=== PATIENT | male | born 1965 | race African-American/Black ===

== ENCOUNTER 2017-10-21 23:39 | Inpatient (IN) | payer SELFPAY ==
[2017-10-22] MEDS ORDERED: Acetaminophen 325 MG TAB PO PRN (02:16)
[2017-10-22] MEDS ORDERED: Loperamide HCl 2 MG CAP PO PRN (02:16)
[2017-10-22] MEDS ORDERED: Guaifenesin DM 100-10/5 ML UDCUP PO PRN (02:16)
[2017-10-22] MEDS ORDERED: HYDROcodone/Acetaminophen 5/325 mg Tablet PO PRN (02:16)
[2017-10-22] MEDS ORDERED: Milk Of Magnesia 30 ML UDCUP PO PRN (02:16)
[2017-10-22] MEDS ORDERED: Mag-Al 1200 mg/1200 mg/30 ML UDCUP PO PRN (02:16)
[2017-10-22] MEDS ORDERED: Ondansetron ODT 4 MG TAB PO PRN (02:16)
[2017-10-22] MEDS ORDERED: hydrALAZINE 20 MG/ML VIAL SLOW IVP PRN (02:16)
[2017-10-22] MEDS ORDERED: Ondansetron HCl/PF 4 MG/2 ML Vial IVP PRN (02:16)
[2017-10-22] MEDS ORDERED: Zolpidem Tartrate 5 MG TAB PO PRN (02:16)
[2017-10-22] MEDS ORDERED: Labetalol HCl 100 MG/20 ML VIAL SLOW IVP PRN (02:16)
[2017-10-22] MEDS ORDERED: Senokot 8.6 MG TAB PO PRN (02:16)
[2017-10-22 02:33] VITALS: BMI 25.0
[2017-10-22] MEDS: Sodium Chloride 0.9% 1,000 ML IV SCH ×3 (02:40→20:39)
[2017-10-22 03:12] LABS: Amphetamine Not Detected (NotDetected); Barbiturates Screen Not Detected (NotDetected); Benzodiazepine Screen Not Detected (NotDetected); Cocaine Metabolite Screen Detected (NotDetected); Medtox Control Line Valid? VALID (VALID); Medtox Reader # READER 1; Methadone Not Detected (NotDetected); Methamphetamine Not Detected (NotDetected); Opiate Screen Not Detected (NotDetected); Oxycodone Screen Not Detected (NotDetected); Phencyclidine (PCP) Not Detected (NotDetected); THC/Cannabinoid Screen Not Detected (NotDetected); Tricyclic Screen Not Detected (NotDetected)
--- NOTE | 2017-10-22 03:19 | HP ---
PRIMARY CARE PHYSICIAN: [facility] call admission. REASON FOR ADMISSION: Acute rhabdomyolysis, acute kidney failure. HISTORY OF PRESENT ILLNESS: A 52-year-old -Malag[place] male who was initially taken to [facility] ergency Room, patient was having cramping all over his body, especially on the chest area, thigh area , and back. This was going on for last 2-3 days. He was working heavily for the last couple of days in hot humid weather. His work was requiring lifting heavy weight. Day by day, he was having more and more cramps and that is why today he decided to go to local emergency room, patient was found wit h acute kidney failure as well as rhabdomyolysis. Patient was given IV fluid 2 L and Toradol and sub sequently, he was transferred to our hospital for further treatment. Patient reports that he drinks alcohol, at least 4 beers on a daily basis and he also smokes about campos lf pack per day. He also abuses cocaine periodically and he reports that his last use was about 10 d ays ago. Patient reports that his urine is concentrated, but he denies any Coca-Cola colored urine. He denies any pleuritic chest pain. He denies any angina. He denies any orthopnea, PND or leg swel ling. He denies any fever or chills. He denies any UTI symptoms. He denies any headache, focal mot or or sensory symptoms. He denies any constipation, diarrhea, melena, or hematochezia. ALLERGIES: No known drug allergy. CURRENT HOME MEDICATIONS: The patient is not taking any prescribed or non-prescribed medication. REVIEW OF SYSTEMS: Constitutional: Weight loss or gain, ability to conduct usual activities. Skin: Rash, itching. Eyes: Double vision, pain. ENT/Mouth: Nose bleeding, neck stiffness, pain, tende rness. Cardiovascular: Palpitations, dyspnea on exertion, orthopnea. Respiratory: Shortness of br eath, wheezing, cough, hemoptysis, fever or night sweats. Gastrointestinal: Poor appetite, abdomina l pain, heartburn, nausea, vomiting, constipation, or diarrhea. Genitourinary: Urgency, frequency, dysuria, nocturia. Musculoskeletal: Pain, swelling. Neurologic/Psychiatric: Anxiety, depression. Allergy/Immunologic: Skin rash, bleeding tendency. Please see my HPI for pertinent positive and ne gative. All other review of systems reviewed and negative except as mentioned in the HPI. PAST MEDICAL HISTORY: Asthma. PAST SURGICAL HISTORY: Reviewed and negative. SOCIAL HISTORY: Patient is drinking almost 4 beers on weekend. He smokes about a half pack per day. He abuses marijuana and cocaine periodically. FAMILY HISTORY: No strong family history of premature coronary artery disease, stroke, or cancer. N o family history of ESRD. PAST PSYCHIATRIC HISTORY: Reviewed and negative. EMERGENCY ROOM COURSE: At [facility], the patient is given 2 L of fluid and Toradol and t he patient is receiving another 1 liter of IV fluid in our emergency room. PHYSICAL EXAMINATION: VITAL SIGNS: On arrival, blood pressure 159/82, pulse 95, respiratory rate 16, temperature 97.7, sat uration 98% on room air, weight 84.8 kilograms. GENERAL: Patient is currently alert, awake, in no acute distress. HEAD: Normocephalic, atraumatic. EYES: Pupils round, reactive to light. Extraocular muscle intact. ENT: Oropharynx within normal limits. Moist mucous membranes. No oral lesion, no pharyngeal erythe ma, no exudate. NECK: Supple. No JVD, no thyromegaly, no carotid bruit, no jugular venous distention. LUNGS: Clear to auscultation without any rhonchi or rales. CARDIAC: S1, S2 regular without any significant murmur. ABDOMEN: Soft, bowel sounds present, nontender, nondistended. No organomegaly, no mass, no suprapub ic tenderness. BACK: Unremarkable. No CVA tenderness. EXTREMITIES: Upper extremity: Passive movement of all joints are normal. Lower extremities: No ed layla. Good peripheral pulsation. SKIN: No skin rash. HEMATOLOGICAL: No lymphadenopathy. NEUROLOGIC: Nonfocal examination. SIGNIFICANT LABORATORY AND DIAGNOSTIC DATA: CBC: WBC 14.5, hemoglobin 17.0, platelets 307,000. BMP : Sodium 138, potassium 4.9, chloride 98, carbon dioxide 19, anion gap 26, BUN 29, creatinine 2.41, glucose 94, calcium 10.4. LFT: AST 26, ALT 44, alkaline phosphatase 79, albumin 5.5, CK 417. CK-MB 4.9, troponin I 0.011. Chest x-ray based on my review, no acute cardiopulmonary process. EKG and t elemetry monitor showing normal sinus rhythm. ASSESSMENT AND PLAN: 1. Acute kidney failure, likely due to prerenal etiology underlying hypertensive nephrosclerosis as well as cocaine-induced nephropathy cannot be entirely excluded. We will check urine sodium, urine c reatinine, urine protein, uric acid, phosphorus, magnesium. We will continue gentle IV fluid at 100 mL per hour. We will repeat renal function test tomorrow. We will also obtain renal ultrasound. We are expecting with IV fluid, the patient's renal function will continue to improve. 2. Rhabdomyolysis. We will repeat total CK level tomorrow. We will continue with IV fluid at NS 10 0 mL per hour. 3. Leukocytosis, likely due to stress response. We will repeat CBC tomorrow. 4. Elevated anion gap metabolic acidosis likely due to renal failure. We will continue with IV flui d and will repeat BMP tomorrow. If patient has persistent metabolic acidosis, then we will consider adding bicarbonate drip. 5. Hypertension without previous history of hypertension. We will monitor patient's blood pressure while in hospital and if needed, then we will start antihypertensive medication. We will avoid beta- [place] therapy because of his cocaine abuse. 6. Polysubstance abuse. Patient has tobacco, alcohol, and cocaine abuse as well as marijuana abuse. We will check urine drug screen. The patient counseling given to avoid illicit drugs. 7. Deep venous thrombosis prophylaxis, heparin 5000 units subcu twice daily. 8. Gastrointestinal prophylaxis. Pepcid 20 mg p.o. daily. CODE STATUS: The patient is FULL CODE. Patient does not have any surrogate decision maker. Disposition plan based on clinical course. We are expecting patient's stay in hospital more than 2 m idnights. Plan of care discussed with the patient in detail.
[2017-10-22 04:12] LABS: Creatinine, Urine 219.8 mg/dL (63-166)
[2017-10-22 05:37] LABS: #Eosinphils 0.1 thou/uL (0.0-0.7); #Lymphocytes 2.3 thou/uL (1.20-3.40); #Monocytes 0.9 thou/uL (0.11-0.59); %Basophils 0.4 % (0.0-1.0); %Eosinophils 0.7 % (0.0-10.0); %Lymphocytes 22.4 % (21.0-51.0); %Monocytes 8.9 % (0.0-10.0); %Neutrophils 67.6 % (42.0-75.0); Hemoglobin 14.6 g/dL (14.0-18.0); Mean Corpuscular HGB CONC 33.7 g/dL (32.0-36.0); Mean Corpuscular Hemoglobin 31.5 pg (27.0-31.0); Mean Corpuscular Volume 93.4 fl (80.0-94.0); Mean Platelet Volume 7.2 fL (7.4-10.4); Platelet Count 253 thou/uL (130-400); RBC Distribution Width 12.5 % (11.5-14.5); Red Blood Cell (RBC) Count 4.63 mill/uL (4.70-6.10); White Blood Cell (WBC) Count 10.3 thou/uL (4.8-10.8)
[2017-10-22 05:59] LABS: ALT (SGPT) 29 U/L (8-55); AST (SGOT) 20 U/L (5-34); Albumin 4.3 g/dL (3.5-5.0); Alkaline Phosphatase 66 U/L (40-150); Anion Gap 12 mmol/L (10-20); BUN (Urea Nitrogen) 33 mg/dL (8.4-25.7); Bilirubin, Total 1.1 mg/dL (0.2-1.2); CK (CPK) 310 U/L (30-200); Calc. Creatinine Clearance 61 mL/min (70-130); Calcium 8.9 mg/dL (7.8-10.44); Carbon Dioxide 24 mmol/L (22-29); Chloride 105 mmol/L (98-107); Estimated GFR-MDRD 53; Glucose 103 mg/dL (70-105); Phosphorus 6.1 mg/dL (2.3-4.7); Potassium 3.9 mmol/L (3.5-5.1); Protein, Total 7.3 g/dL (6.0-8.3); Sodium 137 mmol/L (136-145); Uric Acid 10.3 mg/dL (3.5-7.2)
[2017-10-22] MEDS: Famotidine 20 MG TAB PO SCH (08:20)
[2017-10-22] MEDS: Heparin 5,000 UNITS/ML VIAL SC SCH ×2 (08:20→20:39)
--- NOTE | 2017-10-22 10:29 | ULT ---
RENAL ULTRASOUND: DATE: 10/22/17. COMPARISON: None. HISTORY: Acute kidney failure. TECHNIQUE: Multiplanar, callaway scale, sonographic imaging of the kidneys and urinary bladder obtained. FINDINGS: The right kidney measures 9.5 x 4.3 x 4.9 cm and the left kidney measures 9.6 x 4.7 x 4.8 cm. No alba al mass, hydronephrosis, or renal stone seen on either side. Urinary bladder appears grossly unremar kable, with bilateral ureteral jets demonstrated. IMPRESSION: Unremarkable renal ultrasound. POS: LYUDMILA
[2017-10-23] MEDS: Sodium Chloride 0.9% 1,000 ML IV SCH (05:21)
[2017-10-23] MEDS: Heparin 5,000 UNITS/ML VIAL SC SCH ×2 (08:42→20:07)
[2017-10-23] MEDS: Famotidine 20 MG TAB PO SCH (08:42)
[2017-10-23 09:02] LABS: #Eosinphils 0.2 thou/uL (0.0-0.7); #Lymphocytes 1.8 thou/uL (1.20-3.40); #Monocytes 0.5 thou/uL (0.11-0.59); #Neutrophils 1.3 thou/uL (1.40-6.50); %Basophils 0.8 % (0.0-1.0); %Eosinophils 4.1 % (0.0-10.0); %Lymphocytes 48.2 % (21.0-51.0); %Monocytes 12.9 % (0.0-10.0); %Neutrophils 33.9 % (42.0-75.0); Hemoglobin 13.3 g/dL (14.0-18.0); Mean Corpuscular HGB CONC 34.1 g/dL (32.0-36.0); Mean Corpuscular Hemoglobin 32.3 pg (27.0-31.0); Mean Corpuscular Volume 94.7 fl (80.0-94.0); Mean Platelet Volume 7.2 fL (7.4-10.4); Platelet Count 203 thou/uL (130-400); RBC Distribution Width 12.3 % (11.5-14.5); Red Blood Cell (RBC) Count 4.11 mill/uL (4.70-6.10); White Blood Cell (WBC) Count 3.7 thou/uL (4.8-10.8)
[2017-10-23 09:21] LABS: Anion Gap 11 mmol/L (10-20); BUN (Urea Nitrogen) 15 mg/dL (8.4-25.7); Calc. Creatinine Clearance 97 mL/min (70-130); Calcium 8.2 mg/dL (7.8-10.44); Carbon Dioxide 21 mmol/L (22-29); Chloride 109 mmol/L (98-107); Estimated GFR-MDRD Greater than 90; Glucose 119 mg/dL (70-105); Potassium 4.4 mmol/L (3.5-5.1); Sodium 137 mmol/L (136-145)
--- NOTE | 2017-10-23 15:41 | PDOC.PN ---
- Subjective Encounter Start Date: 10/23/17 Encounter Start Time: 15:40 Pt seen for followup re: rhabdomyolysis. Denies chest pain, shortness of breath , fevers or chills. - Objective Resuscitation Status: Resuscitation Status FULL:Full Resuscitation MAR Reviewed: Yes Vital Signs & Weight: Vital Signs (12 hours) Temp Pulse Resp BP BP Pulse Ox 10/23/17 12:00 98.4 F 77 16 134/76 99 10/23/17 08:00 98.5 F 73 16 98 10/23/17 07:03 98.5 F 73 16 119/71 98 10/23/17 04:00 98.1 F 63 20 120/73 96 Weight Weight 179 lb 3.773 oz I&O: 10/22/17 10/23/17 10/24/17 06:59 06:59 06:59 Intake Total 800 3643 Balance 800 3643 Result Diagrams: 10/23/17 08:48 10/23/17 08:48 Additional Labs: Labs reviewed by me Phys Exam - Physical Examination Constitutional: NAD HEENT: moist MMs, sclera anicteric, oral pharynx no lesions, 2+ tonsils Neck: no nodes, no JVD, supple, full ROM Respiratory: no wheezing, no rales, no rhonchi, clear to auscultation bilateral Cardiovascular: RRR, no rub S1, S2 Gastrointestinal: soft, non-tender, no distention, positive bowel sounds Musculoskeletal: pulses present Neurological: moves all 4 limbs Psychiatric: normal affect, A&O x 3 Deviation from normal: Oriented to person and place, not to time Dx/Plan (1) Rhabdomyolysis Code(s): M62.82 - RHABDOMYOLYSIS Status: Acute Comment: CK rising, continue IV fluids, repeat CK level (2) Metabolic acidosis Code(s): E87.2 - ACIDOSIS Status: Acute Comment: add bicarb to drip (3) Leukopenia Code(s): D72.819 - DECREASED WHITE BLOOD CELL COUNT, UNSPECIFIED Status: Acute Comment: mild, clinically no evidence of infection (4) Polysubstance abuse Code(s): F19.10 - OTHER PSYCHOACTIVE SUBSTANCE ABUSE, UNCOMPLICATED Status: Chronic Comment: Pt counseled re; cessation (5) SHAYNE (acute kidney injury) Code(s): N17.9 - ACUTE KIDNEY FAILURE, UNSPECIFIED Status: Resolved (6) Leukocytosis Code(s): D72.829 - ELEVATED WHITE BLOOD CELL COUNT, UNSPECIFIED Status: Resolved - Plan * . Review of Systems - Review of Systems Constitutional: negative: fever, chills, sweats, weakness, malaise Respiratory: negative: Cough, Shortness of Breath, SOB with Excertion, Pleuritic Pain, Wheezing Cardiovascular: negative: chest pain, palpitations, orthopnea, paroxysmal nocturnal dyspnea, edema, light headedness Gastrointestinal: negative: Nausea, Vomiting, Abdominal Pain, Diarrhea, Constipation, Melena, Hematochezia Genitourinary: negative: Dysuria, Frequency, Incontinence, Hematuria, Retention Skin: negative: Rash, Lesions, Garcia, Bruising - Medications/Allergies Allergies/Adverse Reactions: Allergies Allergy/AdvReac Type Severity Reaction Status Date / Time No Known Drug Allergies Allergy Verified 10/22/17 02:30 Medications: Current Medications Acetaminophen (Tylenol) 650 mg PO Q4H PRN PRN Reason: Headache/Fever or Pain Hydrocodone Bitart/Acetaminophen ([place] 5/325) 1 tab PO Q4H PRN PRN Reason: Moderate Pain (4-6) Al Hydroxide/Mg Hydroxide (Maalox) 30 ml PO Q6H PRN PRN Reason: Heartburn or Indigestion Famotidine (Pepcid) 20 mg PO DAILY [facility] Last Admin: 10/23/17 08:42 Dose: 20 mg Guaifenesin/Dextromethorphan (Robitussin Dm) 15 ml PO Q4H PRN PRN Reason: Cough Heparin Sodium (Porcine) (Heparin) 5,000 units SC BID [facility] Last Admin: 10/23/17 08:42 Dose: 5,000 units Hydralazine HCl (Apresoline) 10 mg SLOW IVP Q4H PRN PRN Reason: SBP GREATER THAN 160 Sodium Chloride (Normal Saline 0.9%) 1,000 mls @ 100 mls/hr IV .Q10H [facility] Last Admin: 10/23/17 05:21 Dose: 1,000 mls Labetalol HCl (Normodyne) 10 mg SLOW IVP Q4H PRN PRN Reason: SBP Greater Than 180 Loperamide HCl (Imodium) 2 mg PO PRN PRN PRN Reason: Diarrhea/Loose Stools Magnesium Hydroxide (Milk Of Magnesium) 30 ml PO DAILYPRN PRN PRN Reason: Constipation Ondansetron HCl (Zofran Odt) 4 mg PO Q6H PRN PRN Reason: Nausea/Vomiting Ondansetron HCl (Zofran) 4 mg IVP Q6H PRN PRN Reason: Nausea/Vomiting Last Admin: 10/22/17 08:42 Dose: 4 mg Senna (Senokot) 2 tab PO HSPRN PRN PRN Reason: Constipation Zolpidem Tartrate (Ambien) 5 mg PO HSPRN PRN PRN Reason: Insomnia
[2017-10-23] MEDS: Sodium Bicarbonate 150 MEQ in Dextrose 5 %-0.45 % NaCl 1,000 ML IV SCH (17:10)
[2017-10-24] MEDS: Sodium Bicarbonate 150 MEQ in Dextrose 5 %-0.45 % NaCl 1,000 ML IV SCH (03:56)
[2017-10-24 05:42] LABS: Anion Gap 11 mmol/L (10-20); BUN (Urea Nitrogen) 15 mg/dL (8.4-25.7); CK (CPK) 324 U/L (30-200); Calc. Creatinine Clearance 94 mL/min (70-130); Calcium 8.1 mg/dL (7.8-10.44); Carbon Dioxide 26 mmol/L (22-29); Chloride 107 mmol/L (98-107); Estimated GFR-MDRD 88; Glucose 138 mg/dL (70-105); Phosphorus 3.8 mg/dL (2.3-4.7); Potassium 3.7 mmol/L (3.5-5.1); Sodium 140 mmol/L (136-145)
[2017-10-24 05:54] LABS: Eosinophils 4 % (0-10); Hemoglobin 12.5 g/dL (14.0-18.0); Lymphocytes 59 % (21-51); MDiff Complete? YES; Mean Corpuscular Hemoglobin 30.8 pg (27.0-31.0); Mean Corpuscular Volume 93.4 fl (80.0-94.0); Mean Platelet Volume 7.5 fL (7.4-10.4); Monocytes 6 % (0-10); Neutrophil 27 % (42-75); Platelet Count 199 thou/uL (130-400); RBC Distribution Width 12.1 % (11.5-14.5); Reactive Lymphocytes 4 % (0-10); Red Blood Cell (RBC) Count 4.05 mill/uL (4.70-6.10)
[2017-10-24 07:27] VITALS: BP 126/73; TEMP 98.3
[2017-10-24] MEDS: Famotidine 20 MG TAB PO SCH (08:23)
[2017-10-24] MEDS: Heparin 5,000 UNITS/ML VIAL SC SCH (08:23)
--- NOTE | 2017-10-24 12:37 | DIS ---
DATE OF ADMISSION: 10/22/2017 DATE OF DISCHARGE: 10/24/2017 PRIMARY CARE PROVIDER: None. DISCHARGE DIAGNOSES: 1. Acute kidney injury. 2. Rhabdomyolysis. 3. Metabolic acidosis. CONDITION OF PATIENT ON THE DAY OF DISCHARGE: Stable. I assessed Mr. Ramírez on the day of discharge. He denies any chest pain or shortness of breath. Vital signs are stable. S1 and S2 are heard, regu lar. Lungs are clear to auscultation bilaterally. HOSPITAL COURSE: Mr. Ramírez is a pleasant 52-year-old gentleman, who was admitted to [facility] on 10/22/2017 for acute kidney injury and rhabdomyolysis following exertional work i n hot temperatures. He was treated with intravenous fluids, including bicarbonate drip. Acute kidne y injury, resolved. CK level improved. He is being discharged home in a stable condition and being advised to maintain good oral intake. His urine toxicology screen was positive for cocaine. He has been advised to stop recreational drug use. He is also advised to stop tobacco use. On the day of discharge, he has white count 4000, hemoglobin 12.5, platelet count 199,000, normal eduard ctrolytes, normal creatinine, and CK level of 324. Please note that his CK level was elevated in the past as well. DISCHARGE DESTINATION: Home. DISCHARGE MEDICATIONS: None. TOTAL AMOUNT OF TIME SPENT COORDINATING THIS DISCHARGE: 33 minutes.
== END 2017-10-24 14:06 | disposition home or self-care (01) | DRG 683 ==
LOC: ERS 23:39 → T4-A 10-22 01:09
PROVIDERS: ADMIT Internal Medicine; ATTEND Internal Medicine
DX: N17.9 Acute kidney failure, unspecified (principal); M62.82 Rhabdomyolysis; E87.2 Acidosis; D72.819 Decreased white blood cell count, unspecified; F19.10 Other psychoactive substance abuse, uncomplicated; D72.829 Elevated white blood cell count, unspecified; F17.210 Nicotine dependence, cigarettes, uncomplicated; F10.10 Alcohol abuse, uncomplicated; I12.9 Hypertensive chronic kidney disease with stage 1 through stage 4 chronic kidney disease, or unspecified chronic kidney disease; N18.9 Chronic kidney disease, unspecified
CPT/HCPCS: 36415; 76770; 80048; 80053; 80306; 82550; 82570; 84100; 84156; 84300; 84550; 85025; 99406; J1644; J2405; J7042; Q0162

== ENCOUNTER 2021-06-25 01:52 | Inpatient (IN) | payer SELFPAY ==
[2021-06-25] MEDS ORDERED: Lorazepam 2 MG/ML VIAL ONE (19:10)
[2021-06-25] MEDS ORDERED: Ondansetron PF 4 MG/2 ML Vial IVP PRN (19:23)
[2021-06-25] MEDS ORDERED: Acetaminophen 325 MG TAB PO PRN (19:23)
[2021-06-25] MEDS ORDERED: Lorazepam 1 MG TAB PO PRN (19:27)
[2021-06-25] MEDS ORDERED: Lorazepam 2 MG/ML VIAL IM PRN (19:27)
[2021-06-25 19:29] LABS: Actual Bicarbonate (HCO3a) 24.3 mEq/L (22-28); Base Excess (BEa) 0.8 mEq/L (-2.0 to +3.0); CO2 Tension 35.4 mmHg (35.0-45.0); Calcium, Ionized (arterial) 1.14 mmol/L (1.12-1.30); Carboxyhemoglobin (COHb) 0.8 gm% (0.0-3.0); O2 Tension (PaO2), arterial 81.3 mmHg (80.0-100.0); Potassium - ABG Lab 4.08 mmol/L (3.70-5.30); pH, Arterial 7.46 (7.35-7.45)
[2021-06-25 19:30] LABS: Puncture Site RRA
[2021-06-25] MEDS ORDERED: Electrolyte Replacement Protocol 1 EACH FS SCH (19:30)
[2021-06-25 19:33] LABS: #Eosinphils 0.1 thou/uL (0.0-0.7); #Monocytes 0.8 thou/uL (0.11-0.59); #Neutrophils 7.1 thou/uL (1.40-6.50); %Basophils 0.2 % (0.0-1.0); %Eosinophils 0.7 % (0.0-10.0); %Lymphocytes 20.1 % (21.0-51.0); %Monocytes 7.6 % (0.0-10.0); %Neutrophils 71.5 % (42.0-75.0); Hemoglobin 14.3 g/dL (14.0-18.0); Mean Corpuscular HGB CONC 33.9 g/dL (32.0-36.0); Mean Corpuscular Hemoglobin 31.7 pg (27.0-31.0); Mean Corpuscular Volume 93.5 fL (78.0-98.0); Mean Platelet Volume 6.7 fL (7.4-10.4); Platelet Count 348 thou/uL (130-400); RBC Distribution Width 11.9 % (11.5-14.5); Red Blood Cell (RBC) Count 4.51 mill/uL (4.70-6.10); White Blood Cell (WBC) Count 9.9 thou/uL (4.8-10.8)
[2021-06-25 19:44] LABS: INR-International Normal Ratio 1.1; PTT 28.7 sec (22.9-36.1); Prothrombin Time 14.6 sec (12.0-14.7)
[2021-06-25 19:50] VITALS: BP 159/104
[2021-06-25 19:52] LABS: Phosphorus 2.5 mg/dL (2.3-4.7)
[2021-06-25 19:54] LABS: ALT (SGPT) 25 U/L (8-55); AST (SGOT) 12 U/L (5-34); Albumin 3.6 g/dL (3.5-5.0); Alkaline Phosphatase 74 U/L (40-110); Anion Gap 12 mmol/L (10-20); BUN (Urea Nitrogen) 19 mg/dL (8.4-25.7); Bilirubin, Total 0.5 mg/dL (0.2-1.2); Calc. Creatinine Clearance 0 mL/min (70-130); Calcium 8.6 mg/dL (7.8-10.44); Carbon Dioxide 24 mmol/L (22-29); Chloride 103 mmol/L (98-107); Globulin 3.3 g/dL (2.4-3.5); Glucose 112 mg/dL (70-105); Magnesium 2.5 mg/dL (1.6-2.6); Potassium 4.2 mmol/L (3.5-5.1); Protein, Total 6.9 g/dL (6.0-8.3); Sodium 135 mmol/L (136-145)
[2021-06-25] MEDS: Multivit, Therapeutic 1 TAB PO SCH ×2 (20:10→20:17)
[2021-06-25] MEDS: Lorazepam 1 MG TAB PO SCH (20:10)
[2021-06-25] MEDS ORDERED: Pantoprazole 40 MG VIAL IVP SCH (20:30)
[2021-06-25] MEDS ORDERED: Folic Acid 1 MG TAB PO SCH (21:00)
[2021-06-25] MEDS ORDERED: Ketorolac Tromethamine 30 MG/ML VIAL IVP SCH (23:00)
[2021-06-26] MEDS: Lorazepam 1 MG TAB PO SCH ×4 (01:34→20:37)
[2021-06-26 04:17] LABS: #Eosinphils 0.1 thou/uL (0.0-0.7); #Lymphocytes 2.5 thou/uL (1.20-3.40); #Monocytes 0.7 thou/uL (0.11-0.59); %Basophils 0.6 % (0.0-1.0); %Eosinophils 0.8 % (0.0-10.0); %Lymphocytes 29.8 % (21.0-51.0); %Monocytes 8.8 % (0.0-10.0); Hemoglobin 13.7 g/dL (14.0-18.0); Mean Corpuscular HGB CONC 33.2 g/dL (32.0-36.0); Mean Corpuscular Hemoglobin 31.1 pg (27.0-31.0); Mean Corpuscular Volume 93.7 fL (78.0-98.0); Platelet Count 344 thou/uL (130-400); RBC Distribution Width 11.8 % (11.5-14.5); Red Blood Cell (RBC) Count 4.39 mill/uL (4.70-6.10); White Blood Cell (WBC) Count 8.3 thou/uL (4.8-10.8)
[2021-06-26 04:27] LABS: Anion Gap 13 mmol/L (10-20); BUN (Urea Nitrogen) 19 mg/dL (8.4-25.7); Calc. Creatinine Clearance 93 mL/min (70-130); Calcium 8.5 mg/dL (7.8-10.44); Carbon Dioxide 23 mmol/L (22-29); Chloride 104 mmol/L (98-107); Glucose 125 mg/dL (70-105); Potassium 4.1 mmol/L (3.5-5.1); Sodium 136 mmol/L (136-145)
[2021-06-26 06:21] LABS: Acetaminophen Less than 6.0 mcg/mL (10.0-30.0); Alcohol Less than 10 mg/dL (Less than 10); Salicylate Less than 8.0 mg/dL (15.0-30.0)
[2021-06-26] MEDS ORDERED: levETIRAcetam in NS 1,000 MG in Premix Bag 1 BAG IVPB SCH (06:45)
[2021-06-26] MEDS ORDERED: Lactated Ringer's 1,000 ML IV SCH (08:45)
[2021-06-26] MEDS: Famotidine 20 MG TAB PO SCH ×2 (08:46→20:37)
[2021-06-26] MEDS: Multivit, Therapeutic 1 TAB PO SCH (08:47)
[2021-06-26] MEDS: Folic Acid 1 MG TAB PO SCH (08:47)
[2021-06-26] MEDS: Enoxaparin Sodium 40 MG/0.4 ML SYRINGE SC SCH (08:47)
[2021-06-26] MEDS: Pantoprazole 40 MG VIAL IVP SCH (08:48)
[2021-06-26] MEDS ORDERED: FLU VACC QS2021-22(6MOS UP)/PF 60 MCG/0.5 ML SYRINGE IM ONE (09:00)
[2021-06-26 12:51] LABS: Amphetamine Detected (NotDetected); Barbiturates Screen Not Detected (NotDetected); Benzodiazepine Screen Detected (NotDetected); Cocaine Metabolite Screen Not Detected (NotDetected); Methadone Not Detected (NotDetected); Methamphetamine Detected (NotDetected); Opiate Screen Not Detected (NotDetected); Oxycodone Screen Not Detected (NotDetected); Phencyclidine (PCP) Not Detected (NotDetected); THC/Cannabinoid Screen Not Detected (NotDetected); Tricyclic Screen Not Detected (NotDetected)
[2021-06-26 13:27] VITALS: BMI 26.6
[2021-06-26] MEDS ORDERED: Lorazepam 1 MG TAB PO PRN (19:27)
[2021-06-26] MEDS: levETIRAcetam 500 MG TAB PO SCH (20:37)
[2021-06-27] MEDS: Lorazepam 1 MG TAB PO SCH ×2 (02:12→09:40)
[2021-06-27] MEDS ORDERED: Lorazepam 1 MG TAB PO SCH (08:45)
[2021-06-27 09:01] LABS: #Basophils 0.1 thou/uL (0.0-0.2); #Eosinphils 0.2 thou/uL (0.0-0.7); #Lymphocytes 1.6 thou/uL (1.20-3.40); #Monocytes 0.5 thou/uL (0.11-0.59); #Neutrophils 2.7 thou/uL (1.40-6.50); %Basophils 1.1 % (0.0-1.0); %Eosinophils 4.5 % (0.0-10.0); %Lymphocytes 30.7 % (21.0-51.0); %Monocytes 10.3 % (0.0-10.0); %Neutrophils 53.5 % (42.0-75.0); Hemoglobin 13.1 g/dL (14.0-18.0); Mean Corpuscular HGB CONC 31.7 g/dL (32.0-36.0); Mean Corpuscular Hemoglobin 30.5 pg (27.0-31.0); Mean Corpuscular Volume 96.3 fL (78.0-98.0); Mean Platelet Volume 6.8 fL (7.4-10.4); Platelet Count 321 thou/uL (130-400); RBC Distribution Width 11.8 % (11.5-14.5); Red Blood Cell (RBC) Count 4.29 mill/uL (4.70-6.10); White Blood Cell (WBC) Count 5.1 thou/uL (4.8-10.8)
[2021-06-27 09:14] LABS: Anion Gap 12 mmol/L (10-20); BUN (Urea Nitrogen) 14 mg/dL (8.4-25.7); Calc. Creatinine Clearance 108 mL/min (70-130); Calcium 8.1 mg/dL (7.8-10.44); Carbon Dioxide 24 mmol/L (22-29); Chloride 104 mmol/L (98-107); Glucose 141 mg/dL (70-105); Magnesium 2.3 mg/dL (1.6-2.6); Potassium 3.8 mmol/L (3.5-5.1); Sodium 136 mmol/L (136-145)
[2021-06-27] MEDS: Famotidine 20 MG TAB PO SCH (09:43)
[2021-06-27] MEDS: Folic Acid 1 MG TAB PO SCH (09:43)
[2021-06-27] MEDS: levETIRAcetam 500 MG TAB PO SCH (09:43)
[2021-06-27] MEDS: Multivit, Therapeutic 1 TAB PO SCH (09:43)
[2021-06-27] MEDS: Enoxaparin Sodium 40 MG/0.4 ML SYRINGE SC SCH (09:43)
[2021-06-27] MEDS: Pantoprazole 40 MG VIAL IVP SCH (09:43)
[2021-06-27 16:41] VITALS: TEMP 98.9
[2021-06-27] MEDS ORDERED: Lorazepam 1 MG TAB PO PRN (19:27)
[2021-06-27] MEDS ORDERED: Lorazepam 0.5 MG TAB PO SCH ×2 (19:30)
[2021-06-28] MEDS ORDERED: Thiamine 100 MG TAB PO SCH (09:00)
[2021-06-28] MEDS ORDERED: Lorazepam 0.5 MG TAB PO PRN (19:27)
== END 2021-06-27 17:40 | disposition home or self-care (01) | DRG 897 ==
LOC: NEURO 01:52 → OBSVTOIN 19:23 → CCU 19:24
PROVIDERS: ADMIT Internal Medicine; ATTEND Internal Medicine
DX: F10.239 Alcohol dependence with withdrawal, unspecified (principal); E87.1 Hypo-osmolality and hyponatremia; N17.9 Acute kidney failure, unspecified; R56.9 Unspecified convulsions; F19.10 Other psychoactive substance abuse, uncomplicated; F17.210 Nicotine dependence, cigarettes, uncomplicated; Z71.51 Drug abuse counseling and surveillance of drug abuser
CPT/HCPCS: 36415; 36600; 70551; 74018; 80048; 80053; 80143; 80179; 80306; 80307; 82805; 83690; 83735; 84100; 85025; 85610; 85730; 90471; 90686; 90732; C9113; G0008; G0009; J1650; J1885; J1953; J3411; J7120